=== PATIENT | male | born 1940 | race Caucasian/White ===

== ENCOUNTER → 2016-09-05 | Outpatient (CLI) | payer BC ==
[2015-02-05 20:02] VITALS: BP 156/93
[~2016-09-05] MED LIST: AMOXICILLIN 8751 TAB PO; ASPIRIN 32325 MG/TAB PO; AUGMENTIN 875-1 EACH PO; BENAZEPRIL10 MG PO; CLOPIDOGREL PO; HYDROCHLOROTHIA25 MG PO; LANTUS100 U/ML SC; LEVAQUIN 750MG750 M1 PO; LEVOTHYROXIN0.112 MG PO; NOVOLOG 100U100 U/M1 SC; PROLENSA OP; VISION VITAMIN1 EACH PO; [UNRECOGNIZED DRUG - OTHER] PO
== END ==
LOC: RAD 07:03
DX: E03.9 Hypothyroidism, unspecified (principal); R63.4 Abnormal weight loss

== ENCOUNTER → 2018-10-26 | Outpatient (CLI) | payer MEDICARE, OTHER ==
[2015-02-05 20:02] VITALS: BP 156/93
[2018-10-26 08:25] LABS: ALBUMIN 3.5 g/dL (3.4-4.8); POTASSIUM 4.2 mmol/L (3.5-5.1)
[2018-10-26 08:26] LABS: CALCIUM 8.4 mg/dL (8.3-10.5)
[2018-10-26 08:28] LABS: TOTAL PROTEIN 5.9 g/dL (6.2-8.1)
[2018-10-26 08:30] LABS: TOTAL BILIRUBIN 0.5 mg/dL (0.2-1.2)
== END ==
LOC: LAB 07:58
PROVIDERS: Emergency Medicine
DX: Z12.5 Encounter for screening for malignant neoplasm of prostate (principal); I10 Essential (primary) hypertension; E10.9 Type 1 diabetes mellitus without complications; E03.9 Hypothyroidism, unspecified; H61.21 Impacted cerumen, right ear; Z95.9 Presence of cardiac and vascular implant and graft, unspecified

== ENCOUNTER → 2019-10-28 | Outpatient (CLI) | payer MEDICARE, OTHER ==
[2015-02-05 20:02] VITALS: BP 156/93
[2019-10-28 08:57] LABS: HEMATOCRIT 40.3 % (42.0-52.0); HEMOGLOBIN 13.2 g/dL (13.5-18.0); MEAN CELL VOLUME 92 fl (78-100); MEAN CORPUSCULAR HEMOGLOBIN 30 pg (27-31); MEAN CORPUSCULAR HGB CONC 33 g/dL (33-37); MEAN PLATELET VOLUME 9.7 fl (7.4-10.4); PLATELET COUNT 235 K/mm3 (130-400); RED CELL DISTRIBUTION WIDTH 12.9 % (11.5-14.5); WHITE BLOOD COUNT 4.5 K/mm3 (4.8-10.8)
[2019-10-28 09:02] LABS: ALBUMIN 3.9 g/dL (3.4-4.8); POTASSIUM 3.9 mmol/L (3.5-5.1)
[2019-10-28 09:03] LABS: CALCIUM 9.4 mg/dL (8.3-10.5)
[2019-10-28 09:04] LABS: TOTAL PROTEIN 6.5 g/dL (6.2-8.1)
[2019-10-28 09:06] LABS: TOTAL BILIRUBIN 0.5 mg/dL (0.2-1.2)
[2019-10-28 09:38] LABS: LYMPHOCYTE 22 % (20-51); MONOCYTE 15 % (3-10); NEUTROPHILS 50 % (42-75)
== END ==
LOC: LAB 08:18
PROVIDERS: Emergency Medicine
DX: Z12.0 Encounter for screening for malignant neoplasm of stomach (principal); E03.9 Hypothyroidism, unspecified; E10.9 Type 1 diabetes mellitus without complications; I10 Essential (primary) hypertension; Z95.9 Presence of cardiac and vascular implant and graft, unspecified

== ENCOUNTER → 2020-09-17 | Outpatient (CLI) | payer MEDICARE, OTHER ==
[~2020-09-17] MED LIST changes: +TRESIBA FL100 UNIT/1 SQ
[2020-09-17 07:28] LABS: BASO # 0.06 (0.02-0.10); EOS # 0.42 (0.04-0.40); EOS % 8.7 % (0.0-4.0); HEMATOCRIT 39.9 % (42.0-52.0); LYMPH# 1.04 (1.50-4.00); MEAN CELL VOLUME 94 fl (78-100); MEAN CORPUSCULAR HEMOGLOBIN 31 pg (27-31); MEAN CORPUSCULAR HGB CONC 33 g/dL (33-37); MEAN PLATELET VOLUME 9.9 fl (7.4-10.4); MONO # 0.82 (0.20-0.80); NEU # 2.49 (1.40-6.50); PLATELET COUNT 217 K/mm3 (130-400); RED BLOOD COUNT 4.26 M/mm3 (4.20-5.60); RED CELL DISTRIBUTION WIDTH 12.9 % (11.5-14.5); WHITE BLOOD COUNT 4.8 K/mm3 (4.8-10.8)
[2020-09-17 07:36] LABS: ALBUMIN 3.6 g/dL (3.4-4.8); POTASSIUM 3.7 mmol/L (3.5-5.1)
[2020-09-17 07:37] LABS: CALCIUM 8.7 mg/dL (8.3-10.5)
[2020-09-17 07:39] LABS: TOTAL PROTEIN 6.2 g/dL (6.2-8.1)
[2020-09-17 07:40] LABS: TOTAL BILIRUBIN 0.5 mg/dL (0.2-1.2)
== END ==
LOC: LAB 07:06
PROVIDERS: Emergency Medicine
DX: Z12.5 Encounter for screening for malignant neoplasm of prostate (principal); I10 Essential (primary) hypertension; E03.9 Hypothyroidism, unspecified; E10.9 Type 1 diabetes mellitus without complications; H61.23 Impacted cerumen, bilateral; Z95.9 Presence of cardiac and vascular implant and graft, unspecified

== ENCOUNTER 2020-09-18 15:43 | Emergency (ER) | payer MEDICARE, OTHER ==
[~2020-09-18] VITALS: Ht 170.2 cm; Wt 68.2 kg
[~2020-09-18 15:43] MED LIST changes: -TRESIBA FL100 UNIT/1 SQ
[2020-09-18 16:31] LABS: BASO # 0.05 (0.02-0.10); EOS # 0.04 (0.04-0.40); EOS % 0.7 % (0.0-4.0); HEMATOCRIT 38.6 % (42.0-52.0); HEMOGLOBIN 12.8 g/dL (13.5-18.0); LYMPH# 0.58 (1.50-4.00); MEAN CELL VOLUME 94 fl (78-100); MEAN CORPUSCULAR HEMOGLOBIN 31 pg (27-31); MEAN CORPUSCULAR HGB CONC 33 g/dL (33-37); MEAN PLATELET VOLUME 9.7 fl (7.4-10.4); MONO # 0.58 (0.20-0.80); NEU # 4.44 (1.40-6.50); PLATELET COUNT 206 K/mm3 (130-400); RED BLOOD COUNT 4.13 M/mm3 (4.20-5.60); RED CELL DISTRIBUTION WIDTH 12.8 % (11.5-14.5); WHITE BLOOD COUNT 5.7 K/mm3 (4.8-10.8)
[2020-09-18 16:48] LABS: SODIUM 139 mmol/L (136-145)
[2020-09-18 16:49] LABS: ALBUMIN 3.7 g/dL (3.4-4.8); CALCIUM 8.9 mg/dL (8.3-10.5)
[2020-09-18 16:50] LABS: GLUCOSE 191 mg/dL (75-110); POTASSIUM 4.1 mmol/L (3.5-5.1); TOTAL PROTEIN 6.4 g/dL (6.2-8.1)
[2020-09-18 16:51] LABS: CARBON DIOXIDE 26 mmol/L (23-31)
[2020-09-18 16:52] LABS: TOTAL BILIRUBIN 0.6 mg/dL (0.2-1.2)
[2020-09-18 16:55] LABS: AST-SGOT 18 U/L (5-34)
[2020-09-18 16:57] LABS: ALT/SGPT 15 U/L (0-55)
[2020-09-18 17:05] LABS: TROPONIN-I < 0.03 ng/mL (<0.030)
[2020-09-18 20:08] LABS: URINE APPEARANCE CLEAR; URINE COLOR YELLOW
[2020-09-18 20:09] LABS: URINE BILIRUBIN NEGATIVE (NEGATIVE); URINE BLOOD TRACE (NEGATIVE); URINE KETONE NEGATIVE (NEGATIVE); URINE LEUKOCYTE ESTERASE NEGATIVE (NEGATIVE); URINE MUCUS PRESENT (NOT PRESENT); URINE NITRATE NEGATIVE (NEGATIVE); URINE PROTEIN(semi-quant) TRACE mg/dL (NEGATIVE); URINE UROBILINOGEN NORMAL (NORMAL)
[2020-09-18 20:30] VITALS: BP 152/74
[2020-09-18 20:47] LABS: LYMPHOCYTE 13 % (20-51); MONOCYTE 12 % (3-10); NEUTROPHILS 75 % (42-75)
== END 2020-09-18 20:30 | disposition home or self-care (01) ==
LOC: ED 15:43
PROVIDERS: Nurse Practitioner
DX: R00.1 Bradycardia, unspecified (principal); R42 Dizziness and giddiness; E10.9 Type 1 diabetes mellitus without complications; I10 Essential (primary) hypertension; Z87.891 Personal history of nicotine dependence; Z95.9 Presence of cardiac and vascular implant and graft, unspecified; Z79.4 Long term (current) use of insulin; Z79.899 Other long term (current) drug therapy
CPT/HCPCS: J7030

== ENCOUNTER 2020-11-28 18:34 | Emergency (ER) | payer MEDICARE, OTHER ==
[~2020-11-28] VITALS: Ht 175.3 cm; Wt 59.1 kg
[2020-11-28] MEDS ORDERED: TRESIBA FL100 UNIT/1 SQ ×2 (19:23)
[2020-11-28 19:40] LABS: HEMATOCRIT 41.9 % (42.0-52.0); HEMOGLOBIN 13.9 g/dL (13.5-18.0); MEAN CELL VOLUME 91 fl (78-100); MEAN CORPUSCULAR HEMOGLOBIN 30 pg (27-31); MEAN CORPUSCULAR HGB CONC 33 g/dL (33-37); MEAN PLATELET VOLUME 9.6 fl (7.4-10.4); PLATELET COUNT 246 K/mm3 (130-400); RED BLOOD COUNT 4.59 M/mm3 (4.20-5.60); RED CELL DISTRIBUTION WIDTH 12.5 % (11.5-14.5); WHITE BLOOD COUNT 8.4 K/mm3 (4.8-10.8)
[2020-11-28 19:53] LABS: POTASSIUM 4.2 mmol/L (3.5-5.1); SODIUM 136 mmol/L (136-145)
[2020-11-28 19:54] LABS: CALCIUM 10.1 mg/dL (8.3-10.5)
[2020-11-28 19:55] LABS: GLUCOSE 232 mg/dL (75-110)
[2020-11-28 19:56] LABS: CARBON DIOXIDE 25 mmol/L (23-31)
[2020-11-28 19:57] LABS: TOTAL BILIRUBIN 0.6 mg/dL (0.2-1.2)
[2020-11-28 20:00] LABS: AST-SGOT 20 U/L (5-34)
[2020-11-28 20:02] LABS: ALT/SGPT 13 U/L (0-55)
[2020-11-28 20:13] LABS: TROPONIN-I < 0.03 ng/mL (<0.030)
[2020-11-28 21:04] LABS: URINE APPEARANCE CLEAR; URINE BILIRUBIN NEGATIVE (NEGATIVE); URINE BLOOD NEGATIVE (NEGATIVE); URINE COLOR YELLOW; URINE GLUCOSE NEGATIVE (NEGATIVE); URINE KETONE 2+ (NEGATIVE); URINE LEUKOCYTE ESTERASE NEGATIVE (NEGATIVE); URINE NITRATE NEGATIVE (NEGATIVE); URINE PROTEIN(semi-quant) TRACE mg/dL (NEGATIVE); URINE UROBILINOGEN NORMAL (NORMAL); URINE WBC 0-1 /hpf (0-3)
[2020-11-28 21:05] LABS: URINE MUCUS PRESENT (NOT PRESENT)
[2020-11-28 21:25] LABS: BAND 1 % (0-10); LYMPHOCYTE 8 % (20-51); MONOCYTE 6 % (3-10); NEUTROPHILS 82 % (42-75)
[2020-11-28 21:54] VITALS: BP 143/97
== END 2020-11-28 21:54 | disposition home or self-care (01) ==
LOC: ED 18:34
PROVIDERS: Physician Assistant
DX: I10 Essential (primary) hypertension (principal); E10.65 Type 1 diabetes mellitus with hyperglycemia; I25.2 Old myocardial infarction; Z86.74 Personal history of sudden cardiac arrest; Z95.5 Presence of coronary angioplasty implant and graft; Z87.891 Personal history of nicotine dependence; Z20.822 Contact with and (suspected) exposure to COVID-19; Z79.899 Other long term (current) drug therapy
CPT/HCPCS: J2405; J7030

== ENCOUNTER → 2020-12-20 | Outpatient (CLI) | payer MEDICARE, OTHER ==
[~2020-12-20] MED LIST changes: +TRESIBA FL100 UNIT/1 SQ
[2020-12-20 08:04] LABS: BASO # 0.08 K/mm3 (0.02-0.10); EOS # 0.35 K/mm3 (0.04-0.40); EOS % 7.4 % (0.0-4.0); HEMATOCRIT 40.8 % (42.0-52.0); HEMOGLOBIN 13.3 g/dL (13.5-18.0); LYMPH# 1.08 K/mm3 (1.50-4.00); MEAN CELL VOLUME 93 fl (78-100); MEAN CORPUSCULAR HEMOGLOBIN 30 pg (27-31); MEAN CORPUSCULAR HGB CONC 33 g/dL (33-37); MEAN PLATELET VOLUME 9.7 fl (7.4-10.4); NEU # 2.48 K/mm3 (1.40-6.50); PLATELET COUNT 231 K/mm3 (130-400); RED BLOOD COUNT 4.39 M/mm3 (4.20-5.60); RED CELL DISTRIBUTION WIDTH 12.6 % (11.5-14.5); WHITE BLOOD COUNT 4.7 K/mm3 (4.8-10.8)
[2020-12-20 08:12] LABS: ALBUMIN 3.8 g/dL (3.4-4.8); POTASSIUM 4.5 mmol/L (3.5-5.1)
[2020-12-20 08:13] LABS: CALCIUM 9.9 mg/dL (8.3-10.5)
[2020-12-20 08:15] LABS: TOTAL PROTEIN 6.4 g/dL (6.2-8.1)
[2020-12-20 08:16] LABS: TOTAL BILIRUBIN 0.5 mg/dL (0.2-1.2)
[2020-12-20 09:06] LABS: PH-URINE 6.5 (5.0 - 8.0); URINE APPEARANCE CLEAR; URINE BILIRUBIN NEGATIVE (NEGATIVE); URINE BLOOD NEGATIVE (NEGATIVE); URINE COLOR YELLOW; URINE KETONE NEGATIVE (NEGATIVE); URINE LEUKOCYTE ESTERASE NEGATIVE (NEGATIVE); URINE NITRATE NEGATIVE (NEGATIVE); URINE PROTEIN(semi-quant) TRACE mg/dL (NEGATIVE); URINE UROBILINOGEN NORMAL (NORMAL); URINE WBC 0-1 /hpf (0-3)
[2020-12-20 09:07] LABS: URINE MUCUS PRESENT (NOT PRESENT)
[2020-12-20 17:54] LABS: TESTOSTERONE 620 ng/dL (221-716)
[2020-12-20 18:01] LABS: CREATININE OTHER SOURCE 68 mg/dL (())
== END ==
LOC: LAB 07:31
PROVIDERS: Internal Medicine
DX: Z12.5 Encounter for screening for malignant neoplasm of prostate (principal); I25.10 Atherosclerotic heart disease of native coronary artery without angina pectoris; E10.9 Type 1 diabetes mellitus without complications; I10 Essential (primary) hypertension; N52.9 Male erectile dysfunction, unspecified; K90.9 Intestinal malabsorption, unspecified

== ENCOUNTER → 2021-02-04 | Outpatient (CLI) | payer MEDICARE, OTHER | LOC: LAB 13:51 | DX: Z20.822 Contact with and (suspected) exposure to COVID-19 (principal) ==

== ENCOUNTER → 2021-03-27 | Outpatient (CLI) | payer MEDICARE, OTHER ==
[2021-03-27 08:19] LABS: BASO # 0.09 K/mm3 (0.02-0.10); EOS # 0.54 K/mm3 (0.04-0.40); EOS % 9.4 % (0.0-4.0); HEMOGLOBIN 12.9 g/dL (13.5-18.0); LYMPH# 1.13 K/mm3 (1.50-4.00); MEAN CELL VOLUME 90 fl (78-100); MEAN CORPUSCULAR HEMOGLOBIN 30 pg (27-31); MEAN CORPUSCULAR HGB CONC 33 g/dL (33-37); MEAN PLATELET VOLUME 9.8 fl (7.4-10.4); MONO # 0.98 K/mm3 (0.20-0.80); NEU # 3.02 K/mm3 (1.40-6.50); PLATELET COUNT 273 K/mm3 (130-400); RED BLOOD COUNT 4.35 M/mm3 (4.20-5.60); WHITE BLOOD COUNT 5.8 K/mm3 (4.8-10.8)
[2021-03-27 08:20] LABS: ALBUMIN 3.9 g/dL (3.4-4.8)
[2021-03-27 08:22] LABS: CALCIUM 9.5 mg/dL (8.3-10.5)
[2021-03-27 08:23] LABS: TOTAL PROTEIN 6.8 g/dL (6.2-8.1)
[2021-03-27 09:42] LABS: TOTAL BILIRUBIN 0.6 mg/dL (0.2-1.2)
== END ==
LOC: LAB 07:07
PROVIDERS: Internal Medicine
DX: K90.9 Intestinal malabsorption, unspecified (principal); E10.9 Type 1 diabetes mellitus without complications; I10 Essential (primary) hypertension

== ENCOUNTER 2021-08-31 21:35 | Emergency (ER) | payer MEDICARE, OTHER ==
[2021-08-31 22:11] LABS: BASO # 0.08 K/mm3 (0.02-0.10); EOS # 0.31 K/mm3 (0.04-0.40); EOS % 3.2 % (0.0-4.0); HEMATOCRIT 41.4 % (42.0-52.0); HEMOGLOBIN 13.7 g/dL (13.5-18.0); LYMPH# 1.04 K/mm3 (1.50-4.00); MEAN CELL VOLUME 92 fl (78-100); MEAN CORPUSCULAR HEMOGLOBIN 31 pg (27-31); MEAN CORPUSCULAR HGB CONC 33 g/dL (33-37); MEAN PLATELET VOLUME 9.7 fl (7.4-10.4); MONO # 1.05 K/mm3 (0.20-0.80); NEU # 7.03 K/mm3 (1.40-6.50); PLATELET COUNT 232 K/mm3 (130-400); RED BLOOD COUNT 4.48 M/mm3 (4.20-5.60); RED CELL DISTRIBUTION WIDTH 12.8 % (11.5-14.5); WHITE BLOOD COUNT 9.5 K/mm3 (4.8-10.8)
[2021-08-31 22:18] LABS: ALBUMIN 4.2 g/dL (3.4-4.8); POTASSIUM 3.5 mmol/L (3.5-5.1)
[2021-08-31 22:19] LABS: CALCIUM 9.6 mg/dL (8.3-10.5)
[2021-08-31 22:20] LABS: TOTAL PROTEIN 6.8 g/dL (6.2-8.1)
[2021-08-31 22:22] LABS: TOTAL BILIRUBIN 0.5 mg/dL (0.2-1.2)
[2021-09-01 01:20] VITALS: BP 106/80
== END 2021-09-01 01:21 | disposition home or self-care (01) ==
LOC: ED 21:35
PROVIDERS: Family Medicine
DX: E86.9 Volume depletion, unspecified (principal)
CPT/HCPCS: J7030

== ENCOUNTER → 2021-09-18 | Outpatient (CLI) | payer MEDICARE, OTHER ==
[2021-09-18 08:34] LABS: ALBUMIN 3.8 g/dL (3.4-4.8); POTASSIUM 4.1 mmol/L (3.5-5.1)
[2021-09-18 08:36] LABS: CALCIUM 9.3 mg/dL (8.3-10.5)
[2021-09-18 08:37] LABS: TOTAL PROTEIN 6.3 g/dL (6.2-8.1)
[2021-09-18 08:39] LABS: TOTAL BILIRUBIN 0.4 mg/dL (0.2-1.2)
== END ==
LOC: LAB 08:03
PROVIDERS: Internal Medicine
DX: E10.9 Type 1 diabetes mellitus without complications (principal)

== ENCOUNTER → 2023-02-10 | Outpatient (CLI) | payer MEDICARE, OTHER ==
[~2023-02-10] MED LIST changes: +ALBUTEROL2.5 MG/3 M IH; +ATHLETE'S FOOT1% TP; +HCTZ 25MG25 MG PO; +LATANOPROST 2.2.5 ML OU; +LEVOTHYROXINE112 MCG PO; +NEB INH; +NOVOLOG FLEX100 U/ML SQ; +REVATIO20 MG PO; +SLOWMAG85 MG PO; +TRESIBA FL200 UNIT/1 SQ; +VITAMIN B-121000 MC2 PO; +VITAMIN D3125 MC1 PO
[2023-02-10 16:09] LABS: BASO # 0.08 K/mm3 (0.02-0.10); EOS # 0.54 K/mm3 (0.04-0.40); EOS % 5.6 % (0.0-4.0); HEMATOCRIT 38.7 % (42.0-52.0); HEMOGLOBIN 12.9 g/dL (13.5-18.0); MEAN CELL VOLUME 88 fl (78-100); MEAN CORPUSCULAR HEMOGLOBIN 29 pg (27-31); MEAN CORPUSCULAR HGB CONC 33 g/dL (33-37); MEAN PLATELET VOLUME 9.2 fl (7.4-10.4); MONO # 1.21 K/mm3 (0.20-0.80); NEU # 6.87 K/mm3 (1.40-6.50); PLATELET COUNT 272 K/mm3 (130-400); RED BLOOD COUNT 4.42 M/mm3 (4.20-5.60); RED CELL DISTRIBUTION WIDTH 13.1 % (11.5-14.5); WHITE BLOOD COUNT 9.7 K/mm3 (4.8-10.8)
[2023-02-10 16:20] LABS: URINE APPEARANCE CLEAR (CLEAR); URINE BILIRUBIN NEGATIVE (NEGATIVE); URINE BLOOD NEGATIVE (NEGATIVE); URINE COLOR YELLOW (YELLOW); URINE KETONE NEGATIVE (NEGATIVE); URINE LEUKOCYTE ESTERASE NEGATIVE (NEGATIVE); URINE NITRATE NEGATIVE (NEGATIVE); URINE PROTEIN(semi-quant) NEGATIVE (NEGATIVE)
[2023-02-10 16:22] LABS: URINE GLUCOSE TRACE (NEGATIVE)
[2023-02-10 16:27] LABS: CALCIUM 9.7 mg/dL (8.3-10.5)
[2023-02-10 16:29] LABS: TOTAL PROTEIN 7.6 g/dL (6.2-8.1)
[2023-02-10 16:30] LABS: TOTAL BILIRUBIN 0.2 mg/dL (0.2-1.2)
[2023-02-10 16:36] LABS: MAGNESIUM 2.06 mg/dL (1.60-2.60)
[2023-02-10 21:31] LABS: CREATININE OTHER SOURCE 60 mg/dL (47-110)
[2023-02-10 21:57] LABS: TESTOSTERONE 392 ng/dL (221-716)
== END ==
LOC: LAB 15:49
PROVIDERS: Internal Medicine
DX: Z12.11 Encounter for screening for malignant neoplasm of colon (principal); Z12.5 Encounter for screening for malignant neoplasm of prostate; I25.10 Atherosclerotic heart disease of native coronary artery without angina pectoris; E10.9 Type 1 diabetes mellitus without complications; E03.9 Hypothyroidism, unspecified; I10 Essential (primary) hypertension; K90.9 Intestinal malabsorption, unspecified; F52.21 Male erectile disorder

== ENCOUNTER → 2023-02-19 | Outpatient (CLI) | payer MEDICARE, OTHER ==
[2023-02-19 10:06] LABS: URINE APPEARANCE CLEAR (CLEAR); URINE BILIRUBIN NEGATIVE (NEGATIVE); URINE BLOOD NEGATIVE (NEGATIVE); URINE COLOR YELLOW (YELLOW); URINE GLUCOSE NEGATIVE (NEGATIVE); URINE KETONE NEGATIVE (NEGATIVE); URINE LEUKOCYTE ESTERASE NEGATIVE (NEGATIVE); URINE NITRATE NEGATIVE (NEGATIVE); URINE PROTEIN(semi-quant) NEGATIVE (NEGATIVE)
== END ==
LOC: LAB 09:40
PROVIDERS: Internal Medicine
DX: E10.9 Type 1 diabetes mellitus without complications (principal)

== ENCOUNTER → 2023-03-16 | Outpatient (CLI) | payer MEDICARE, OTHER ==
[2023-03-16 08:58] LABS: BASO # 0.05 K/mm3 (0.02-0.10); EOS # 0.29 K/mm3 (0.04-0.40); HEMATOCRIT 33.1 % (42.0-52.0); HEMOGLOBIN 10.6 g/dL (13.5-18.0); LYMPH# 0.99 K/mm3 (1.50-4.00); MEAN CELL VOLUME 90 fl (78-100); MEAN CORPUSCULAR HEMOGLOBIN 29 pg (27-31); MEAN CORPUSCULAR HGB CONC 32 g/dL (33-37); MEAN PLATELET VOLUME 8.7 fl (7.4-10.4); MONO # 0.98 K/mm3 (0.20-0.80); PLATELET COUNT 437 K/mm3 (130-400); RED BLOOD COUNT 3.69 M/mm3 (4.20-5.60); RED CELL DISTRIBUTION WIDTH 13.2 % (11.5-14.5); WHITE BLOOD COUNT 7.3 K/mm3 (4.8-10.8)
[2023-03-16 09:00] LABS: ALBUMIN 3.6 g/dL (3.4-4.8)
[2023-03-16 09:02] LABS: CALCIUM 9.1 mg/dL (8.3-10.5)
[2023-03-16 09:03] LABS: TOTAL PROTEIN 6.5 g/dL (6.2-8.1)
[2023-03-16 09:29] LABS: TOTAL BILIRUBIN 0.23 mg/dL (0.2-1.2)
== END ==
LOC: LAB 08:45
PROVIDERS: Internal Medicine
DX: J84.9 Interstitial pulmonary disease, unspecified (principal)

== ENCOUNTER → 2023-06-11 | Outpatient (CLI) | payer MEDICARE, OTHER ==
[~2023-06-11] MED LIST changes: +ELIQUIS5 MG PO; +METOPROLOL SUCC25 M1 PO; +PRILOSEC 20MG20 MG PO; +TRELEGY ELLIPT1 EACH IH; +VITAMIN C PUR1000 MG PO
[2023-06-11 09:23] LABS: ALBUMIN 3.9 g/dL (3.4-4.8)
[2023-06-11 09:25] LABS: CALCIUM 9.4 mg/dL (8.3-10.5)
[2023-06-11 09:26] LABS: TOTAL PROTEIN 6.2 g/dL (6.2-8.1)
[2023-06-11 09:28] LABS: TOTAL BILIRUBIN 0.3 mg/dL (0.2-1.2)
== END ==
LOC: LAB 08:56
PROVIDERS: Internal Medicine
DX: E10.9 Type 1 diabetes mellitus without complications (principal)

== ENCOUNTER 2024-01-16 09:23 | Emergency (ER) | payer MEDICARE, OTHER ==
[~2024-01-16] VITALS: Ht 170.2 cm; Wt 60.5 kg
[~2024-01-16 09:23] MED LIST changes: +ONDANSETRON HYDR4 MG PO; +ROSUVASTATIN CA20 MG PO
[2024-01-16 09:59] LABS: HEMATOCRIT 41.2 % (42.0-52.0); HEMOGLOBIN 13.4 g/dL (13.5-18.0); MEAN CELL VOLUME 91 fl (78-100); MEAN CORPUSCULAR HEMOGLOBIN 30 pg (27-31); MEAN CORPUSCULAR HGB CONC 33 g/dL (33-37); MEAN PLATELET VOLUME 9.6 fl (7.4-10.4); PLATELET COUNT 220 K/mm3 (130-400); RED BLOOD COUNT 4.52 M/mm3 (4.20-5.60); RED CELL DISTRIBUTION WIDTH 12.9 % (11.5-14.5); WHITE BLOOD COUNT 12.7 K/mm3 (4.8-10.8)
[2024-01-16 10:07] LABS: ALBUMIN 3.8 g/dL (3.4-4.8)
[2024-01-16 10:08] LABS: CALCIUM 9.9 mg/dL (8.3-10.5)
[2024-01-16 10:10] LABS: TOTAL PROTEIN 6.7 g/dL (6.2-8.1)
[2024-01-16 10:11] LABS: TOTAL BILIRUBIN 0.3 mg/dL (0.2-1.2)
[2024-01-16] MEDS ORDERED: NS 1,000 ML IV SCH ×2 (10:15→12:30)
[2024-01-16 10:30] LABS: PH-URINE 5.5 (5.0 - 8.0); URINE APPEARANCE CLEAR (CLEAR); URINE BILIRUBIN NEGATIVE (NEGATIVE); URINE BLOOD NEGATIVE (NEGATIVE); URINE COLOR YELLOW (YELLOW); URINE GLUCOSE NEGATIVE (NEGATIVE); URINE KETONE TR (NEGATIVE); URINE LEUKOCYTE ESTERASE NEGATIVE (NEGATIVE); URINE NITRATE NEGATIVE (NEGATIVE); URINE PROTEIN(semi-quant) 2+ (NEGATIVE)
[2024-01-16 10:31] LABS: URINE MUCUS PRESENT (NOT PRESENT)
[2024-01-16 10:31] LABS: BAND 30 % (0-10); LYMPHOCYTE 6 % (20-51); MONOCYTE 15 % (3-10); NEUTROPHILS 49 % (42-75)
[2024-01-16 14:46] VITALS: BP 122/92
[2024-01-16] MEDS ORDERED: Home Ondansetron ODT 4 MG #2 ODT/PACK PO ONE (15:15)
== END 2024-01-16 15:20 | disposition home or self-care (01) ==
LOC: ED 09:23
PROVIDERS: Family Medicine
DX: A08.4 Viral intestinal infection, unspecified (principal); N17.9 Acute kidney failure, unspecified; E86.9 Volume depletion, unspecified; Z86.79 Personal history of other diseases of the circulatory system; Z95.5 Presence of coronary angioplasty implant and graft
CPT/HCPCS: J7030

== ENCOUNTER → 2024-01-25 | Outpatient (CLI) | payer MEDICARE ==
[2024-01-25 07:43] LABS: URINE WBC 0 /hpf (0-3)
[2024-01-25 07:53] LABS: BASO # 0.04 K/mm3 (0.02-0.10); EOS # 0.42 K/mm3 (0.04-0.40); EOS % 4.6 % (0.0-4.0); HEMOGLOBIN 12.8 g/dL (13.5-18.0); LYMPH# 1.51 K/mm3 (1.50-4.00); MEAN CELL VOLUME 90 fl (78-100); MEAN CORPUSCULAR HEMOGLOBIN 30 pg (27-31); MEAN CORPUSCULAR HGB CONC 33 g/dL (33-37); MONO # 1.11 K/mm3 (0.20-0.80); NEU # 5.75 K/mm3 (1.40-6.50); PLATELET COUNT 357 K/mm3 (130-400); RED BLOOD COUNT 4.33 M/mm3 (4.20-5.60); RED CELL DISTRIBUTION WIDTH 13.1 % (11.5-14.5); WHITE BLOOD COUNT 9.1 K/mm3 (4.8-10.8)
[2024-01-25 08:05] LABS: ALBUMIN 3.8 g/dL (3.4-4.8)
[2024-01-25 08:06] LABS: CALCIUM 10.1 mg/dL (8.3-10.5)
[2024-01-25 08:07] LABS: TOTAL PROTEIN 6.4 g/dL (6.2-8.1)
[2024-01-25 08:09] LABS: TOTAL BILIRUBIN 0.4 mg/dL (0.2-1.2)
[2024-01-25 08:11] LABS: URINE APPEARANCE CLEAR (CLEAR); URINE COLOR YELLOW (YELLOW)
[2024-01-25 08:12] LABS: URINE BILIRUBIN NEGATIVE (NEGATIVE); URINE BLOOD NEGATIVE (NEGATIVE); URINE GLUCOSE NEGATIVE (NEGATIVE); URINE KETONE NEGATIVE (NEGATIVE); URINE LEUKOCYTE ESTERASE NEGATIVE (NEGATIVE); URINE NITRATE NEGATIVE (NEGATIVE); URINE PROTEIN(semi-quant) NEGATIVE (NEGATIVE)
[2024-01-25 08:14] LABS: MAGNESIUM 1.76 mg/dL (1.60-2.60)
[2024-01-25 18:39] LABS: CREATININE OTHER SOURCE 68 mg/dL (47-110)
== END ==
LOC: LAB 07:36
PROVIDERS: Internal Medicine
DX: I48.0 Paroxysmal atrial fibrillation (principal); E78.2 Mixed hyperlipidemia; E10.9 Type 1 diabetes mellitus without complications

== ENCOUNTER → 2024-06-03 | Outpatient (CLI) | payer MEDICARE ==
[2024-06-03 11:06] LABS: BASO # 0.04 K/mm3 (0.02-0.10); EOS # 0.41 K/mm3 (0.04-0.40); EOS % 7.1 % (0.0-4.0); HEMATOCRIT 38.3 % (42.0-52.0); HEMOGLOBIN 12.5 g/dL (13.5-18.0); LYMPH# 1.07 K/mm3 (1.50-4.00); MEAN CELL VOLUME 90 fl (78-100); MEAN CORPUSCULAR HEMOGLOBIN 30 pg (27-31); MEAN CORPUSCULAR HGB CONC 33 g/dL (33-37); MEAN PLATELET VOLUME 9.7 fl (7.4-10.4); MONO # 0.96 K/mm3 (0.20-0.80); NEU # 3.26 K/mm3 (1.40-6.50); PLATELET COUNT 197 K/mm3 (130-400); RED BLOOD COUNT 4.24 M/mm3 (4.20-5.60); RED CELL DISTRIBUTION WIDTH 13.2 % (11.5-14.5); WHITE BLOOD COUNT 5.8 K/mm3 (4.8-10.8)
[2024-06-03 11:11] LABS: ALBUMIN 3.9 g/dL (3.4-4.8)
[2024-06-03 11:12] LABS: CALCIUM 9.2 mg/dL (8.3-10.5)
[2024-06-03 11:14] LABS: TOTAL PROTEIN 7.1 g/dL (6.2-8.1)
[2024-06-03 11:15] LABS: TOTAL BILIRUBIN 0.4 mg/dL (0.2-1.2)
[2024-06-03 11:20] LABS: MAGNESIUM 1.93 mg/dL (1.60-2.60)
== END ==
LOC: LAB 10:47
PROVIDERS: Internal Medicine
DX: E10.9 Type 1 diabetes mellitus without complications (principal); I48.0 Paroxysmal atrial fibrillation; E03.9 Hypothyroidism, unspecified; E78.2 Mixed hyperlipidemia; K90.9 Intestinal malabsorption, unspecified